=== PATIENT | female | born 2000 | race Caucasian/White ===

== ENCOUNTER 2023-05-10 05:15 | Inpatient (IN) | payer OTHER ==
[2023-05-10] MEDS ORDERED: PROMETHAZINE HCL 25 MG/1 ML VIAL IVPB ONE (05:50)
[2023-05-10] MEDS ORDERED: ELECTROLYTE-148 SOLN 1,000 ML IV SCH (05:50)
[2023-05-10] MEDS ORDERED: BUTORPHANOL TARTRATE 1 MG/ML VIAL IVPB ONE (05:50)
[2023-05-10 06:30] VITALS: BMI 29.4
[2023-05-10 06:53] LABS: POTASSIUM 4.1 mmol/L (3.5-5.1)
[2023-05-10 06:54] LABS: BLOOD UREA NITROGEN 11.8 mg/dL (7-18); CALCIUM 9.1 mg/dL (8.5-10.1); HEMOGLOBIN 12.6 GM/dL (10.7-15.3); MCH 28.5 pg (25.7-33.7); MCHC 33.3 g/dl (32.0-36.0); MEAN CELL VOLUME 85.8 fl (80-96); MEAN PLT VOLUME 9.7 fl (7.5-11.1); PLATELET COUNT 398 10^3/uL (134-434); RBC 4.43 M/mm3 (3.60-5.2); RDW 16.4 % (11.6-15.6); WHITE BLOOD COUNT 17.4 K/mm3 (4.0-10.0)
[2023-05-10 06:58] LABS: CREATININE 0.6 mg/dL (0.55-1.3)
[2023-05-10 07:08] LABS: PROTHROMBIN TIME (PATIENT) 11.6 SEC (9.7-13.0)
[2023-05-10 07:11] LABS: ACTIVATED PTT 28.8 SECONDS (25.2-36.5)
[2023-05-10 08:39] LABS: ANISOCYTOSIS 0; MACROCYTOSIS 0
[2023-05-10] MEDS ORDERED: OXYTOCIN 30 UNITS in 0.9% NS 30 UNIT/500 ML INFUS.BAG IVPB SCH (11:30)
[2023-05-10] MEDS ORDERED: OXYTOCIN 30 UNITS in 0.9% NS 30 UNIT/500 ML INFUS.BAG IVPB ONE (11:33)
[2023-05-10] MEDS ORDERED: LIDOCAINE HCL 1% PRESERVATIVE FREE - 30ML VIAL ONE (12:05)
[2023-05-10] MEDS ORDERED: METHYLERGONOVINE MALEATE 0.2 MG/1 ML AMP IM PRN (14:12)
[2023-05-10] MEDS ORDERED: ACETAMINOPHEN 325 MG TABLET (FP) PO PRN (14:12)
[2023-05-10] MEDS ORDERED: BENZOCAINE 20% 57 GM BOTTLE TP PRN (14:12)
[2023-05-10] MEDS ORDERED: BENZOCAINE 28 GM HEMORRHOIDAL OINTMENT TP PRN (14:12)
[2023-05-10] MEDS ORDERED: IBUPROFEN 600 MG TABLET (FP) PO PRN (14:12)
[2023-05-10] MEDS ORDERED: oxyCODONE HCL 5 MG TABLET PO PRN (14:12)
[2023-05-10] MEDS ORDERED: BISACODYL 10 MG SUPP.RECT RC PRN (14:12)
[2023-05-10] MEDS ORDERED: WITCH HAZEL 50% (TUCKS) 40 PAD/JAR PAD TP PRN (14:12)
[2023-05-10] MEDS ORDERED: OXYTOCIN 20 UNITS in 0.9% NS 20 UNIT/1,000 ML INFUS.BAG IV SCH (14:15)
[2023-05-10 14:50] LABS: CORD BASE EXCESS -6.9 mmol/L (0-2); CORD HCO3 18.8 mmHg (20-29); CORD PCO2 38.6 mmHg (30-78); CORD pH 7.305 (7.14-7.44)
[2023-05-10 14:54] LABS: CORD BASE EXCESS -9.5 mmol/L (0-2); CORD HCO3 17.7 mmHg (20-29); CORD PCO2 42.8 mmHg (30-78); CORD pH 7.234 (7.14-7.44)
[2023-05-10] MEDS: FERROUS SO4 325 MG TABLET (FP) PO SCH (17:36)
[2023-05-10 22:53] LABS: HEMATOCRIT 25.9 % (32.4-45.2); HEMOGLOBIN 8.6 GM/dL (10.7-15.3); MCH 28.3 pg (25.7-33.7); MCHC 33.2 g/dl (32.0-36.0); MEAN CELL VOLUME 85.2 fl (80-96); MEAN PLT VOLUME 9.3 fl (7.5-11.1); PLATELET COUNT 372 10^3/uL (134-434); RBC 3.04 M/mm3 (3.60-5.2); RDW 16.9 % (11.6-15.6); WHITE BLOOD COUNT 19.4 K/mm3 (4.0-10.0)
[2023-05-10 23:16] LABS: POTASSIUM 4.2 mmol/L (3.5-5.1)
[2023-05-10 23:19] LABS: BLOOD UREA NITROGEN 9.9 mg/dL (7-18)
[2023-05-10 23:22] LABS: CREATININE 0.7 mg/dL (0.55-1.3)
[2023-05-10 23:23] LABS: BILIRUBIN,TOTAL 0.4 mg/dL (0.2-1); TOT PROT 5.2 g/dl (6.4-8.2)
[2023-05-11 08:42] LABS: BASO % 0.2 % (0-2.0); EOS % 0.3 % (0-4.5); HEMATOCRIT 24.8 % (32.4-45.2); HEMOGLOBIN 8.4 GM/dL (10.7-15.3); LYMPH % 15.5 % (8-40); MCHC 33.8 g/dl (32.0-36.0); MEAN CELL VOLUME 85.8 fl (80-96); MEAN PLT VOLUME 9.3 fl (7.5-11.1); MONO % 6.7 % (3.8-10.2); NEUT % 77.3 % (42.8-82.8); PLATELET COUNT 301 10^3/uL (134-434); RBC 2.88 M/mm3 (3.60-5.2); WHITE BLOOD COUNT 17.4 K/mm3 (4.0-10.0)
[2023-05-11] MEDS: PRENATAL VITAMINS W/ FOLIC ACID TABLET (FP) PO SCH (09:36)
[2023-05-11] MEDS: FERROUS SO4 325 MG TABLET (FP) PO SCH ×3 (09:37→18:30)
[2023-05-11] MEDS ORDERED: SENNOSIDES/DOCUSATE COMBO (SENNA PLUS) TABLET (UD) PO PRN (22:00)
[2023-05-12] MEDS: FERROUS SO4 325 MG TABLET (FP) PO SCH ×2 (08:10→11:51)
[2023-05-12 08:39] VITALS: BP 107/70; PULSE 76; RESP 17; TEMP 98.5
[2023-05-12] MEDS: PRENATAL VITAMINS W/ FOLIC ACID TABLET (FP) PO SCH (09:56)
== END 2023-05-12 13:30 | disposition home or self-care (01) | DRG 560 ==
LOC: JDEL 05:15 → JLDR 05:50 → J3W 16:14
PROVIDERS: ADMIT Obstetrics & Gynecology; ATTEND Obstetrics & Gynecology
PROC: 10E0XZZ Delivery of Products of Conception, External Approach (ICD-10-PCS; principal; 2023-05-10)
PROC: 0W8NXZZ Division of Female Perineum, External Approach (ICD-10-PCS; 2023-05-10)
PROC: 0KQM0ZZ Repair Perineum Muscle, Open Approach (ICD-10-PCS; 2023-05-10)
PROC: 10H07YZ Insertion of Other Device into Products of Conception, Via Natural or Artificial Opening (ICD-10-PCS; 2023-05-10)
DX: O70.1 Second degree perineal laceration during delivery (principal); O69.81X0 Labor and delivery complicated by cord around neck, without compression, not applicable or unspecified; O90.81 Anemia of the puerperium; D64.9 Anemia, unspecified; Z3A.39 39 weeks gestation of pregnancy; Z37.0 Single live birth
CPT/HCPCS: 36415; 36600; 59025; 76819-TC; 80048; 80053; 82803; 85025; 85027; 85610; 85730; 86780; 86850; 86900; 86901